=== PATIENT | female | born 1995 | race Caucasian/White ===

== ENCOUNTER 2020-10-05 10:00 | Emergency (ER) | payer OTHER, SELFPAY ==
[2020-10-05 10:12] VITALS: BP 134/89; PULSE 99; RESP 18; TEMP 36.3; O2SAT 99
--- NOTE | 2020-10-05 10:14 | ED.URI ---
HPI - URI/Sore Throat General Chief Complaint: Upper Respiratory Infection Stated Complaint: Sinus Source: patient and RN notes reviewed Limitations: no limitations History of Present Illness HPI Narrative: The vaccinated patient, a non-smoker/occasional drinker , presents with cough and congestion. Patient states she has 1/2-week history of cough, congestion, preceded by improving sore throat. No fever, earache, sneezing/wheezing; no loss of taste/smell, CP, sputum changes, S OB, vomiting/diarrhea. Related Data Allergies Allergy/AdvReac Type Severity Reaction Status Date / Time No Known Allergies Allergy Verified 10/05/20 10:06 Review of Systems Review of Systems: Narrative: General/Constitutional: No weight loss,fever Eyes: N0: Redness,discharge Ears/Nose/Throat: No: Epistaxis,ear discharge Respiratory: Denies: Hemoptysis Gastrointestinal: No Vomiting, Bleeding-rectal Skin: No Lumps, eruption Neurologic: No Focal Weakness,Sz Hematologic: Denies: Petechiae/Purpura Psychiatric: No: Suicida ideationl All Other Systems: Reviewed and Negative PMFSH Past Medical History Medical History (Updated 10/08/20 @ 16:00 by Avery Live MD) Major depression in remission Mass of left wrist Family History Family History (Updated 05/21/16 @ 13:59 by DOCTOR UNKNOWN) Father Hypertension Other Cerebrovascular accident Social History Social History Smoking status: Never smoker Second hand tobacco smoke exposure: No Alcohol intake: never Gender identity (if verbalized by the patient): Female Comments At time of signature, agree with nursing past medical, surgical, social and family history. There is no relevant family history pertinent to the presenting complaint Exam Narrative: Exam Narrative: General Appearance: Well appearing, obese/ Well nourished EYE: PERRLA, Conjunctiva clear Ears: Auditory canal normal, TM normal Nose: Rhinorrhea, Mucousal erythema Mouth/Throat: MM moist, Uvula midline, Pharyngeal erythema Neck: Supple, No adenopathy Respiratory: No respiratory distress; decreased BS , equal; Clear to auscultation Cardiovascular: RRR, No JVD Musculoskeletal: Non tender, Normal strength Skin: Warm, Dry Neurological: A&O x3, CN II-XII intact Psychiatric: Normal mood, Normal affect Course Vital Signs Vital signs: Vital Signs Temperature 97.3 F L 10/05/20 10:12 Pulse Rate 99 10/05/20 10:12 Respiratory Rate 18 10/05/20 10:12 Blood Pressure 134/89 10/05/20 10:12 Pulse Oximetry 99 10/05/20 10:12 Temperature 97.3 F L 10/05/20 10:12 Pulse Rate 99 10/05/20 10:12 Respiratory Rate 18 10/05/20 10:12 Blood Pressure 134/89 10/05/20 10:12 Pulse Oximetry 99 10/05/20 10:12 Discharge Plan Discharge Clinical Impression: Upper respiratory infection Qualifiers: URI type: unspecified URI Qualified Code(s): J06.9 - Acute upper respiratory infection, unspecified Patient Disposition: Home, Self-Care Condition: Stable Instructions: Sinusitis (ED) Prescriptions: New azithromycin 250 mg tablet See Rx Instructions .ROUTE .COMPLEX Qty: 6 RF: 0 azelastine 137 mcg (0.1 %) aerosol,spray 137 mcg NASAL Q12H Qty: 30 RF: 0 benzonatate [Tessalon Perles] 100 mg capsule 100 mg PO TID Qty: 20 RF: 1 No Action levothyroxine [Synthroid] 50 mcg tablet 50 mcg PO DAILY 90 Days Qty: 90 RF: 1 bupropion HCl 150 mg tablet extended release 24 hr See Rx Instructions .ROUTE .COMPLEX Qty: 90 RF: 0 Follow-up/Referrals: Jada,Cammie Dietrich APRN [Primary Care Provider] -
== END 2020-10-05 10:32 | disposition home or self-care (01) ==
PROVIDERS: Emergency Provider Emergency Medicine; PCP Nurse Practitioner Family
DX: J06.9 Acute upper respiratory infection, unspecified (principal)
CPT/HCPCS: 99213; G0463

== ENCOUNTER 2021-02-12 11:41 | Emergency (ER) | payer OTHER, SELFPAY ==
[2021-02-12 12:15] VITALS: BP 132/79; PULSE 79; RESP 18; TEMP 35.7; O2SAT 99
--- NOTE | 2021-02-12 12:51 | ED.EXTPRO ---
HPI - Extremity Problem General Chief complaint: Extremity Problem,Nontraumatic Stated complaint: R toe infection Time Seen by Provider: 02/12/21 12:46 Source: patient, RN notes reviewed and old records reviewed Mode of arrival: ambulatory Limitations: no limitations History of Present Illness HPI Narrative: 25 year old female presents to express care with complaints of pain and swelling to the inner aspect along toe nail of right great toe for the past month which has increased in the past 2 weeks. Patient voices that just about every time she gets a pedicure she gets swelling and pain along the inner aspect of her right great toenail. Patient states that she has not been soaking her foot but has taken some Tylenol for the discomfort. Patient denies any known fevers chills or sweats. MD Complaint: other (right great toe pain) Onset (ago): week(s) (increased past 2 weeks) Pain Consistency: constant Location: right and toe (great toe) Severity scale (1-10): 8 Quality: aching and other (throbbing) Related Data Allergies Allergy/AdvReac Type Severity Reaction Status Date / Time No Known Allergies Allergy Verified 02/12/21 12:32 Review of Systems Review of Systems: CONSTITUTIONAL: Denies fever, chills, or sweats. EYES: Denies visual changes, redness, or discharge. ENT: Denies rhinorrhea, congestion, sore throat, or otalgia. CARDIOVASCULAR: Denies chest pain, palpitations, or edema. RESPIRATORY: Denies cough or dyspnea. GASTROINTESTINAL: Denies abdominal pain, nausea, vomiting, or diarrhea. GENITOURINARY: Denies dysuria or hematuria. SKIN: Denies rash or itching.Positive for right great toe inner aspect of nail with pain and swelling MUSCULOSKELETAL: Denies back pain, joint pain, or myalgia. NEUROLOGIC: Denies headache, numbness, or weakness. PSYCHIATRIC: Positive history of anxiety or depression. All systems reviewed & are unremarkable except as noted in HPI and below PMFSH Past Medical History Medical History (Updated 02/12/21 @ 13:39 by Quita Vu NP) History of sinus problem Hypothyroidism Major depression in remission Mass of left wrist Surgical History Surgical History (Updated 02/12/21 @ 12:55 by Quita Vu NP) History of open heart surgery X3 as 1 to replace valve Family History Family History Father Hypertension Other Cerebrovascular accident Social History Social History Smoking status: Never smoker Second hand tobacco smoke exposure: No Alcohol intake: never Gender identity (if verbalized by the patient): Female Comments At time of signature, agree with nursing past medical, surgical, social and family history. There is no relevant family history pertinent to the presenting complaint Exam Narrative: GENERAL: Well-appearing, well-nourished, and in no acute distress. HEAD: Normocephalic, atraumatic. EYES: PERRLA and EOMI. ENT: Nares clear, no rhinorrhea or epistaxis. Mucous membranes moist.TM's normal with good light reflex, throat pink with no lesions or exudates, tonsils not enlarged. NECK: Supple. no lymphadenopathy CHEST: Clear to auscultation. No respiratory distress.SAO2 99% on room air HEART: Regular rate and rhythm. No murmur heard. Normal peripheral pulses. ABDOMEN: Soft, nontender, nondistended, normal active bowel sounds. EXTREMITIES: Normal range of motion. No edema. SKIN: Warm, dry, no rash. swelling with redness and pain to the inner aspect of right great toe nail bed.Patient reports that she has not had any drainage from around her nail, states throbbing pain.patient has strong pulses to right foot with no tingling or numbness to her right great toe voiced, mobility is intact. NEURO: No focal deficits. Alert and oriented x3. Course Vital Signs Vital signs: Vital Signs Temperature 35.7 C L 02/12/21 12:15 Pulse Rate 79 02/12/21 12:15 Res
== END 2021-02-12 13:18 | disposition home or self-care (01) ==
PROVIDERS: Emergency Provider Registered Nurse; PCP Nurse Practitioner Family
DX: L03.031 Cellulitis of right toe (principal); E03.9 Hypothyroidism, unspecified
CPT/HCPCS: 10160; 99213; G0463

== ENCOUNTER 2021-03-07 10:03 | Emergency (ER) | payer OTHER, SELFPAY ==
--- NOTE | 2021-03-07 10:39 | ED.URI ---
HPI - URI/Sore Throat General Chief Complaint: Upper Respiratory Infection Stated Complaint: cough,runny and stuffy nose Time Seen by Provider: 03/07/21 10:40 Source: patient and RN notes reviewed History of Present Illness HPI Narrative: Patient is a 25-year-old female who presents the urgent care with complaints of cough, runny nose and stuffy nose off and on for the last week. Patient states that she has been using DayQuil without much relief. Patient denies of any fever, chills, nausea, vomiting. States that she was recently on Keflex for an infected toe. Patient has had her Covid vaccine and denies of any Covid exposures. No other acute complaints. No acute distress noted. Patient aware of the plan of care. Some parts of this dictation were generated by voice recognition software and may contain typographical and/or grammatical inaccuracies. Related Data Home Medications Medication Instructions Recorded Confirmed bupropion HCl 150 mg PO DAILY 03/07/21 03/07/21 levothyroxine 50 mcg PO DAILY 03/07/21 03/07/21 spironolactone 100 mg PO DAILY 03/07/21 03/07/21 Allergies Allergy/AdvReac Type Severity Reaction Status Date / Time No Known Allergies Allergy Verified 03/07/21 10:48 Review of Systems Review of Systems: CONSTITUTIONAL: Denies fever, chills, or sweats. EYES: Denies visual changes, redness, or discharge. ENT: Reports of nasal congestion, rhinorrhea and postnasal drainage CARDIOVASCULAR: Denies chest pain, palpitations, or edema. RESPIRATORY: Reports a mild cough without dyspnea GASTROINTESTINAL: Denies abdominal pain, nausea, vomiting, or diarrhea. GENITOURINARY: Denies dysuria or hematuria. SKIN: Denies rash or itching. MUSCULOSKELETAL: Denies back pain, joint pain, or myalgia. NEUROLOGIC: Denies headache, numbness, or weakness. All other systems reviewed are negative, except as documented in HPI. PMFSH Comments At the time of my signature, I reviewed and agree with the nursing past medical, surgical, social, and family history. There is no relevant family history pertinent to the patient complaint. Exam Narrative: GENERAL: This is a well-nourished, well-developed patient, in no apparent distress. HEAD: normocephalic, atraumatic. EYES: PERRL. Sclera clear/white. Vision is grossly intact. EARS: External ears normal, auditory canals clear and without drainage, TMs normal without perforation. Hearing grossly intact. NOSE: External nose normal with no obvious nasal discharge, nares without redness, clear rhinorrhea. THROAT: Mucous membranes moist, posterior pharynx clear. Mild postnasal drainage NECK: Neck supple, non-tender without lymphadenopathy, masses or thyromegaly. CARDIOVASCULAR: Regular rate notable murmur RESPIRATORY: Clear to auscultation. Breath sounds equal bilaterally. No wheezes, rales, or rhonchi. SKIN: warm, intact with no suspicious lesions or rash, good texture and turgor. NEURO: awake, alert, and oriented to person, place and time. There were no obvious focal neurologic abnormalities. EXTREMITIES: No clubbing, cyanosis, or edema. Course Vital Signs Vital signs: Vital Signs Temperature 97.1 F L 03/07/21 10:42 Pulse Rate 96 03/07/21 10:42 Respiratory Rate 18 03/07/21 10:42 Blood Pressure 145/94 H 03/07/21 10:42 Pulse Oximetry 99 03/07/21 10:42 Temperature 97.1 F L 03/07/21 10:42 Pulse Rate 96 03/07/21 10:42 Respiratory Rate 18 03/07/21 10:42 Blood Pressure 145/94 H 03/07/21 10:42 Pulse Oximetry 99 03/07/21 10:42 Reviewed-patient is informed that they may have pre-hypertension or hypertension based on a blood pressure reading in the department. I recommend the patient call the primary care provider listed on their discharge instructions or a physician of their choice this week to arrange follow-up for further evaluation of possible pre-hypertension or hypertension. MDM - URI/Sore Throat MDM Narrative Medical decision making narrative: Advised the pa
[2021-03-07 10:42] VITALS: BP 145/94; PULSE 96; RESP 18; TEMP 36.2; O2SAT 99
== END 2021-03-07 11:00 | disposition home or self-care (01) ==
PROVIDERS: Emergency Provider Nurse Practitioner Family; PCP Nurse Practitioner Family
DX: J32.9 Chronic sinusitis, unspecified (principal)
CPT/HCPCS: 99203; G0463

== ENCOUNTER 2023-01-28 08:02 | Emergency (ER) | payer OTHER, SELFPAY ==
--- NOTE | 2023-01-28 08:19 | ED.ABDPAIN ---
HPI - Abdominal Pain General Chief Complaint: Abdominal Pain Stated Complaint: constipation Time Seen by Provider: 01/28/23 08:18 Source: patient Mode of arrival: ambulatory Limitations: no limitations History of Present Illness HPI narrative: Ginna is a 27-year-old female patient presenting to the clinic today with complaints of constipation x5 days. She reports that she is having some upper abdominal discomfort and bloating. Last bowel movement was 5 days ago and was very hard. Is reporting some pain to her rectal area-states it hurts to try to have a bowel movement due to pain. No fever or chills. Denies any nausea or vomiting. Is passing gas. Related Data Home Medications Medication Instructions Recorded Confirmed bupropion HCl 150 mg 24 hr tablet, 150 mg PO DAILY 03/07/21 01/28/23 extended release levothyroxine 50 mcg tablet 50 mcg PO DAILY 03/07/21 01/28/23 spironolactone 100 mg tablet 100 mg PO DAILY 03/07/21 01/28/23 Allergies Allergy/AdvReac Type Severity Reaction Status Date / Time No Known Allergies Allergy Verified 01/28/23 08:27 Review of Systems Review of Systems: Pertinent positives per HPI. Patient denies any fever, chills, rash, headache, visual changes, dizziness, cough, runny nose, sore throat, shortness of breath, chest pain, palpitations, nausea, vomiting, diarrhea, or any urinary issues. [facility] Past Medical History Medical History History of sinus problem Hypothyroidism Major depression in remission Mass of left wrist Surgical History Surgical History History of open heart surgery X3 as 1 to replace valve Family History Family History Father Hypertension Other Cerebrovascular accident Social History Social History Smoking status: Never smoker Second hand tobacco smoke exposure: No Alcohol intake: never Gender identity (if verbalized by the patient): Female Comments At the time of my signature, I reviewed and agree with the nursing past medical, surgical, social, and family history. There is no relevant family history pertinent to the patient complaint. Exam Narrative: General: Well-developed, well nourished, in no apparent distress. Head: Normocephalic, atraumatic. Cardio: Regular rate and rhythm, s1 and s2 normal, no murmur appreciated. Resp: Clear to auscultation bilaterally, no rhonchi, rales, wheezing or rubs. Abdomen: Soft, distended, pliable, bowel sounds hypoactive but present in all quadrants, tender to palpation over the upper abdomen, no organomegly, no CVAT tenderness. Rectal: Georgina RN at bedside-large swollen nonthrombosed hemorrhoid noted at 12:00 of the rectum, tender to palpation, no bleeding, no obvious anal fissure. Course Course Emergency Course: Portions of this record may have been created with voice recognition software. Level of Care: Express Care Visit Vital Signs Vital signs: Vital Signs Temperature 36.1 C L 01/28/23 08:30 Pulse Rate 90 01/28/23 08:30 Respiratory Rate 20 01/28/23 08:30 Blood Pressure 149/93 H 01/28/23 08:30 Pulse Oximetry 100 01/28/23 08:30 Oxygen Delivery Room Air 01/28/23 08:30 Temperature 36.1 C L 01/28/23 08:30 Pulse Rate 90 01/28/23 08:30 Respiratory Rate 20 01/28/23 08:30 Blood Pressure 149/93 H 01/28/23 08:30 Pulse Oximetry 100 01/28/23 08:30 Oxygen Delivery Room Air 01/28/23 08:30 Vital signs reviewed MDM - Abdominal Pain MDM Narrative Medical decision making narrative: At the time of visit patient is resting comfortably on the exam table. I suspect patient has constipation, rectal pain with large tender hemorrhoid. No obvious bleeding noted. Prescriptions for Mag citrate, Dulcolax, Anusol, and MiraLax w
[2023-01-28 08:30] VITALS: BP 149/93; PULSE 90; RESP 20; TEMP 36.1; O2SAT 100
== END 2023-01-28 08:51 | disposition home or self-care (01) ==
PROVIDERS: Emergency Provider Nurse Practitioner Family; PCP Nurse Practitioner Family
DX: K59.00 Constipation, unspecified (principal); K64.9 Unspecified hemorrhoids; E03.9 Hypothyroidism, unspecified
CPT/HCPCS: 99213; G0463

== ENCOUNTER 2023-04-29 08:44 | Outpatient (CLI) | payer OTHER, SELFPAY ==
[2023-04-29 09:11] LABS: Basophils Percent Auto 0.4 % (0.2-1.2); Eosinophils Absolute Auto 0.1 K/mm3 (0-0.3); Eosinophils Percent Auto 1.2 % (0-4.4); Hematocrit 43.7 % (37.0-47.0); Hemoglobin 14.9 g/dL (12.0-15.0); Immature Granulocyte Absolute 0.02 K/mm3 (0.00-0.031); Immature Granulocyte Percent A 0.2 % (0-0.5); Lymphocytes Absolute Auto 3.26 K/mm3 (0.9-3.2); Mean Corpuscular HGB Conc 34.1 g/dl (32-36); Mean Corpuscular Hemoglobin 30.2 pg (26-34); Mean Corpuscular Volume 88.6 fl (80-100); Mean Platelet Volume 9.4 fl (7.4-10.4); Monocytes Absolute Auto 0.5 K/mm3 (0.1-0.6); Monocytes Percent Auto 5.1 % (2.6-8.5); Neutrophils Absolute Auto 6.5 K/mm3 (1.3-6.7); Neutrophils Percent Auto 62.1 % (45.5-73.1); Platelet Count Result 326 k/mm3 (150-375); Red Blood Count 4.93 M/mm3 (4.2-5.4); Red Cell Distribution Width 12.1 % (11.5-14.5); White Blood Count 10.5 K/mm3 (4.5-10.0)
[2023-04-29 09:24] LABS: Alanine Aminotransferase 22 U/L (6-35); Albumin Level 4.5 g/dL (3.5-5.1); Alkaline Phosphatase 71 U/L (38-126); Anion Gap 9 mmol/L (8-16); Aspartate Amino Transferase 33 U/L (14-36); Bilirubin,Total 1.2 mg/dL (0.2-1.3); Blood Urea Nitrogen 17 mg/dL (7-17); Calcium 9.3 mg/dL (8.4-10.2); Carbon Dioxide 26 mmol/L (22-30); Chloride 104 mmol/L (98-107); Cholesterol 140 mg/dL (0-200); Estimated Glomerular Filt Rate > 60; Glucose 92 mg/dL (65-110); HDL Direct 51 mg/dL; Potassium 3.9 mmol/L (3.4-5.0); Sodium 139 mmol/L (137-145); Triglycerides 125 mg/dL (<150)
[2023-04-29 09:35] LABS: LDL Cholesterol Direct 67 mg/dL
[2023-04-29 09:43] LABS: Hemoglobin A1C 5.7 % (<5.7)
[2023-04-29 10:25] LABS: Free T4 Free Thyroxine 1.29 ng/mL (0.78-2.19)
[2023-05-02 11:52] LABS: DHEA-Sulfate 146 mcg/dL (18-391)
[2023-05-03 07:40] LABS: FSH 8.1 mIU/mL (***); LH 3.9 mIU/mL (***); Triiodothyronine T3 Free 3.4 pg/mL (2.3-4.2)
[2023-05-03 12:19] LABS: Testosterone Total 26 ng/dL (2-45)
[2023-05-03 12:38] LABS: Testosterone Free 4.8 pg/mL (0.2-5.0)
== END 2023-04-29 08:45 | disposition home or self-care (01) ==
LOC: ANHLAB 08:48
PROVIDERS: Visit Provider Obstetrics & Gynecology
DX: N92.6 Irregular menstruation, unspecified (principal)
CPT/HCPCS: 36415; 80053; 80061; 82627; 83001; 83002; 83036; 84402; 84403; 84439; 84443; 84481; 85025

== ENCOUNTER 2023-06-06 10:50 | Emergency (ER) | payer OTHER, SELFPAY ==
[2023-06-06 11:02] VITALS: BP 141/73; PULSE 86; RESP 18; TEMP 36.5; O2SAT 98
[2023-06-06 11:05] VITALS: BP 141/73; PULSE 86; RESP 18; TEMP 36.5; O2SAT 98
--- NOTE | 2023-06-06 11:11 | ED.LOWEXIN ---
HPI - Extremity Injury (Lower) General Chief Complaint: Extremity Injury, Lower Stated Complaint: right toe infection Time Seen by Provider: 06/06/23 11:11 Source: patient Mode of arrival: ambulatory Limitations: no limitations History of Present Illness HPI Narrative: [age] female presents with complaint of redness, swelling and drainage to right great toe. Patient reports that she had pedicure prior to going on vacation. Patient states that she has had a procedure with a piece dyer that cut down part of her toenail and when she gets a pedicure they cut too far. Afebrile. Has been applying Neosporin with no improvement. All systems reviewed and negative except as noted above. Related Data Home Medications Medication Instructions Recorded Confirmed bupropion HCl 150 mg 24 hr tablet, 150 mg PO DAILY 03/07/21 02/19/23 extended release levothyroxine 50 mcg tablet 50 mcg PO DAILY 03/07/21 02/19/23 spironolactone 100 mg tablet 100 mg PO DAILY 03/07/21 02/19/23 sertraline 100 mg tablet 100 mg PO DAILY 02/19/23 02/19/23 acetaminophen 500 mg tablet 500 mg PO Q6H 06/06/23 06/06/23 (Acetaminophen Extra Strength) hydroxyzine HCl 25 mg tablet mg 06/06/23 Allergies Allergy/AdvReac Type Severity Reaction Status Date / Time No Known Allergies Allergy Verified 06/06/23 11:04 Review of Systems Review of Systems: CONSTITUTIONAL: Denies fever, chills, or sweats. EYES: Denies visual changes, redness, or discharge. ENT: Denies rhinorrhea, congestion, sore throat, or otalgia. CARDIOVASCULAR: Denies chest pain, palpitations, or edema. RESPIRATORY: Denies cough or dyspnea. GASTROINTESTINAL: Denies abdominal pain, nausea, vomiting, or diarrhea. GENITOURINARY: Denies dysuria or hematuria. SKIN: Denies rash or itching. Reports redness, drainage and pain to right great toenail. MUSCULOSKELETAL: Denies back pain, joint pain, or myalgia. NEUROLOGIC: Denies headache, numbness, or weakness. PSYCHIATRIC: Denies anxiety or depression. All other systems reviewed are negative, except as documented in HPI. [facility] Past Medical History Medical History History of sinus problem Hypothyroidism Major depression in remission Mass of left wrist Surgical History Surgical History History of open heart surgery X3 as infant 1 to replace valve Family History Family History (Updated 02/19/23 @ 08:57 by GIOVANNI Cabrera) Father Hypertension Grandparent Carcinoma of colon paternal Stomach cancer paternal Other Cerebrovascular accident Social History Social History (Updated 02/19/23 @ 08:58 by GIOVANNI Cabrera) Smoking status: Never smoker Second hand tobacco smoke exposure: No Alcohol intake: current Drinks per week: 1 Substance use: never Substance use type: does not use Lack of Transportation: No Lack of Food: Never True Current Housing: I Have Housing Concerned About Future Housing: No Difficulty Paying Gas/Electric Bills: No Difficulty Paying for Meds: No Currently Unemployed: No Education: Bachelor's Degree Difficulty w/ Childcare or Family Care: No Living arrangements: other Additional living arrangements comments: single Occupation/Education: occupation Additional occupation/education comments: [employer] Gender identity (if verbalized by the patient): Female Sexual Orientation (if Verbalized by the Patient): Straight or Heterosexual Comments At time of signature, agree with nursing past medical, surgical, social and family history. There is no relevant family history pertinent to the presenting complaint. Exam Narrative: GENERAL: This is a well-nourished, well-developed patient, in no apparent distress. HEAD: normocephalic, atraumatic. EYES: PERRL. Sclera clear/white. Vision is grossly intact. EARS: External ears no
== END 2023-06-06 11:22 | disposition home or self-care (01) ==
PROVIDERS: Emergency Provider Nurse Practitioner Family
DX: L08.9 Local infection of the skin and subcutaneous tissue, unspecified (principal); M79.674 Pain in right toe(s); E03.9 Hypothyroidism, unspecified
CPT/HCPCS: 99213; G0463

== ENCOUNTER 2025-01-13 00:39 | Day surgery (SDC) | payer OTHER, SELFPAY ==
--- NOTE | 2025-01-05 10:42 | SUR.PREOP ---
[facility] has started construction of its new state of the art ER which will open Spring 2026. With this, we anticipate parking may be a challenge for some our surgical patients and families. Parking spaces are limited but are available for all Surgical, obstetrics, and ER patients sharing this lot. If you arrive and find you are having a hard time finding a parking space, please note that we understand the challenges, please drive around the hospital and park near Hospital Entrance 1. When you enter this entrance, you can ask a volunteer to direct or take you back to the surgical waiting area to check in. We appreciate everyone?s understanding of these expected challenges while we build for your future. Report to the Outpatient Waiting Room, entrance under the green pavilion located off [address], at time ____629___ on date ___01/13/25____. Planned Procedure Time: ____829____.? Time changes happen often and if your time is changed the preop area will call you the afternoon before. - You and your visitor will be asked to self-screen and do not enter if you have any COVID symptoms. Please call surgeon if you need to reschedule. - A mask is optional within the hospital at this time. Patients may have clear liquids (water, carbonated beverages, clear teas, apple juice) until 3 hours prior to surgery with a maximum of 20 ounces. - NO CLEAR LIQUIDS AFTER 0530 - No food from midnight until time of surgery and no smoking, or chewing tobacco (or any form of nicotine). No chewing gum, candy or mints. - Infants may have breast milk until 4 hours before surgery, formula 6 hours prior to surgery. - Children will be allowed to drink immediately following surgery.? If applicable, please bring a bottle or sippy cup to assist with drinking. Juice, water, soda, and popsicles are readily available.? For infants on formula, please bring formula the day of surgery.? Pacifiers are allowed. Take only the following medications with a SIP of water on the morning of surgery: BUPROPION, VESTURA, HYDROXYZINE, SERTRALINE, ACETAMINOPHEN DO NOT STOP ANY OF YOUR OTHER PRESCRIPTION MEDICATIONS PRIOR TO SURGERY EXCEPT THE FOLLOWING Hold all vitamins and supplements for 3 days per anesthesiologist. Medications to discontinue per physician CHECK WITH DR NOLEN IN REGARDS TO CONTINUING OR HOLDING ALEVE BEFORE SURGERY Date to take last dose Please no make-up, nail puerto rican, hairspray, perfume, deodorant, or body powder the day of surgery.? No jewelry (including any body piercings) or valuables the day of surgery, leave them at home.? Please take a shower or bath the night before, or the morning of, surgery with an antibacterial soap.? Wear comfortable, loose fitting clothing.? Children are encouraged to wear pajamas. - Jewelry must be removed prior to entering the operating room.? Rings and piercings that are not removed may be cut off. - The hospital will not accept responsibility for valuables.? - Please leave all valuables, including medications, at home the day of surgery. If you are going home after surgery, a licensed oil truck driver must drive you home.? - NO public transportation without another adult if you receive anesthesia. - We recommend that an adult stay with you for 24 hours following discharge. - We also recommend that you do not drive, make important decision, drink alcoholic beverages, or take any drugs that were not prescribed by your health care provider for at least 24 hours after your discharge time. For Pediatric surgeries, we recommend two adults accompany the child home. Follow any additional instructions given to you from your surgeon. Telephone instructions given to CAR ONOFRE and asked if any additional questions and then verbalized understanding. Patient advised to call surgeon office or pre surgery nurse liaison [phone] if any additional questions.
[2025-01-05 10:57] VITALS: BMI 43.4
--- NOTE | 2025-01-13 07:14 | P.PNAN_ITS ---
Anes - Initial Pre Proc Eval Procedure: Operation Date: 01/13/25 08:30 Proposed Procedures p Partial Hymenectomy - Justin Romero MD Date/Time: 01/13/25 07:14 Surgeon: Justin Romero MD Pre Op Diagnosis: imperforate hymen Patient Data Age: 29 Gender: F Height: 1.74 m Weight: 131.7 kg Allergies Allergy/AdvReac Type Severity Reaction Status Date / Time No Known Allergies Allergy Verified 01/13/25 08:02 Home Medications ?Medication ?Instructions ?Recorded ?Confirmed ?Type bupropion HCl 150 mg 24 hr tablet, 300 mg PO DAILY 04/2701/05/25 History extended release spironolactone 100 mg tablet 100 mg PO DAILY 03/07/21 01/05/25 History sertraline 100 mg tablet 100 mg PO DAILY 02/19/2305/01 History acetaminophen 500 mg tablet 500 mg PO Q6H 06/06/2305/01 History (Acetaminophen Extra Strength) drospirenone 3 mg-ethinyl 1 tablet PO DAILY #84 tabs 0 10/13/24 01/05/25 Rx estradiol 0.02 mg tablet (Vestura (28)) cholecalciferol (vitamin D3) 25 100 mcg PO DAILY 11/2901/05/25 History mcg (1,000 unit) capsule hydroxyzine HCl 25 mg tablet 25 mg PO DAILY PRN anxiet y 11/29/24 01/05/25 History vitamin K2 1 tablet PO DAILY 11/29/24 1 History naproxen sodium 220 mg tablet 440 mg PO ONCE 01/05/25 01/05/25 History (Aleve) Patient hx anesthesia problems: none Family hx anesthesia problems: none Results Review: All pre-operative results and documents have been reviewed as part of the pre- operative evaluation. FORMERLY [facility], [facility] Past Medical History Medical History Congenital pulmonary stenosis SHANTA (obstructive sleep apnea) CPAP Encounter for screening examination for sexually transmitted disease History of sinus problem Hypothyroidism Major depression in remission Mass of left wrist Surgical History Surgical History History of open heart surgery X3 as infant 1 to replace valve Family History Family History Father Hypertension Grandparent Carcinoma of colon paternal Stomach cancer paternal Other Cerebrovascular accident Social History Social History Social History: Caffeine-coffee Smoking status: Never smoker Second hand tobacco smoke exposure: No Alcohol intake: current Drinks per week: 2 Substance use: never Substance use type: does not use Do You Feel Safe in your Home?: Yes Lack of Transportation: No Lack of Food: Never True Current Housing: I Have Housing Concerned About Future Housing: No Difficulty Paying Gas/Electric Bills: No Difficulty Paying for Meds: No Currently Unemployed: No Education: Bachelor's Degree Difficulty w/ Childcare or Family Care: No Living arrangements: alone Occupation/Education: occupation Additional occupation/education comments: [employer] Gender identity (if verbalized by the patient): Female Sexual Orientation (if Verbalized by the Patient): Straight or Heterosexual Spiritual care concerns: No Anes - Eval Final PreProcedure Day of Procedure 01/13/25 07:14 Patient weight: morbidly obese Heart: regular rate and rhythm Lungs: clear to auscultation Airway: Mallampati scale class II Neurological: alert and oriented Last oral intake: >/= 8 hours ASA classification: III Emergent: no Anesthetic plan: proceed Anesthesia type and monitoring: general GIVS and standard monitoring Results Review: All pre-operative results and documents have been reviewed as part of the pre- operative evaluation. Informed Consent: The patient's anesthetic plan and its attendant risks and benefits were discussed with the patient/family/POA. Questions were solicited and answers provided to the satisfaction of the patient/family/POA.
[2025-01-13] MEDS: LACTATED RINGERS 1,000 ML 30 ML IV CONT (07:15)
--- NOTE | 2025-01-13 07:44 | PM.IMHP ---
H&P: HPI History of Present Illness Date/Time: 01/13/25 07:44 29-year-old female presents for treatment hymenal remnant which has made intercourse painful/not possible. No other issues or concerns at this time Chief Complaint: Hymenal remnant Review of Systems Review of Systems: All systems reviewed & are unremarkable except as noted in HPI and below PMFSH Past Medical History Medical History Congenital pulmonary stenosis SHANTA (obstructive sleep apnea) CPAP Encounter for screening examination for sexually transmitted disease History of sinus problem Hypothyroidism Major depression in remission Mass of left wrist Surgical History Surgical History History of open heart surgery X3 as 1 to replace valve Family History Family History Father Hypertension Grandparent Carcinoma of colon paternal Stomach cancer paternal Other Cerebrovascular accident Social History Social History Social History: Caffeine-coffee Smoking status: Never smoker Second hand tobacco smoke exposure: No Alcohol intake: current Drinks per week: 2 Substance use: never Substance use type: does not use Do You Feel Safe in your Home?: Yes Lack of Transportation: No Lack of Food: Never True Current Housing: I Have Housing Concerned About Future Housing: No Difficulty Paying Gas/Electric Bills: No Difficulty Paying for Meds: No Currently Unemployed: No Education: Bachelor's Degree Difficulty w/ Childcare or Family Care: No Living arrangements: alone Occupation/Education: occupation 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 Gender identity (if verbalized by the patient): Female Sexual Orientation (if Verbalized by the Patient): Straight or Heterosexual Spiritual care concerns: No Meds Home Medications and Allergies Home Medications ?Medication ?Instructions ?Recorded ?Confirmed ?Type bupropion HCl 150 mg 24 hr tablet, 300 mg PO DAILY 03/07/21 01/05/25 History extended release spironolactone 100 mg tablet 100 mg PO DAILY 03/07/21 01/05/25 History sertraline 100 mg tablet 100 mg PO DAILY 02/19/23 01/05/25 History acetaminophen 500 mg tablet 500 mg PO Q6H 06/06/23 01/05/25 History (Acetaminophen Extra Strength) drospirenone 3 mg-ethinyl 1 tablet PO DAILY #84 tabs 10/13/24 01/05/25 Rx estradiol 0.02 mg tablet (Vestura (28)) cholecalciferol (vitamin D3) 25 100 mcg PO DAILY 11/29/24 01/05/25 History mcg (1,000 unit) capsule hydroxyzine HCl 25 mg tablet 25 mg PO DAILY PRN anxiety 11/29/24 01/05/25 History vitamin K2 1 tablet PO DAILY 11/29/24 01/05/25 History naproxen sodium 220 mg tablet 440 mg PO ONCE 01/05/25 01/05/25 History (Aleve) Allergies Allergy/AdvReac Type Severity Reaction Status Date / Time No Known Allergies Allergy Verified 01/05/25 10:58 Exam Resp: Effort & Inspection: normal respiratory effort Auscultation: clear to auscultation bilaterally Cardio: Rate: regular rate Rhythm: regular rhythm GI: Inspection: normal to inspection Auscultation: normal bowel sounds : External Female Exam: normal external appearance Speculum Exam - Vagina: other (Hymen present) Speculum Exam - Cervix: normal appearance of the cervix Bimanual exam- vagina & uterus: normal bimanual exam Bimanual Exam- Adnexa, other: normal adnexae Assessment and Plan Assessment and plan (1) 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
--- NOTE | 2025-01-13 07:47 | WPDHPUPDATE1 ---
History and Physical Update Update Date/Time: 01/13/25 07:47 History and Physical has been reviewed, including an updated exam of the patient. There are NO changes in the patient's condition. Risks, benefits, and alternatives have been discussed and questions answered. Patient agrees to proceed with procedure.
[2025-01-13 08:03] VITALS: BP 147/97; PULSE 79; TEMP 36.1; O2SAT 99; BMI 42.7
[2025-01-13] MEDS: ceFAZolin 3 GM/D5W 100 ML 100 ML IVPB (09:15)
--- NOTE | 2025-01-13 09:16 | S_PTH ---
PATIENT: Ginna Nicholson LOC: [facility] U#:[id number] AGE/SX: 29/F ROOM: RE01/13/[address]: Justin Romero MD : 1995 BED: DIS: 01/13/2025 SPEC #: [id number] RECD: 01/13/25 11:47 STATUS: [place]TON REQ #: [id number] LIANET: 01/13/25 09:[address]: Justin Romero DEPT: [facility] Surgical RECD BY: Amy Christie ENTERED: 01/13/25 11:47 SP TYPE: Surgical OTHR DR: Aaron Galvin, PA Tissues: A - Vaginal Biopsy Procedures: Hematoxylin and Eosin Stain Gross and Microscopic Level 4
[2025-01-13 09:30] VITALS: BP 100/62; PULSE 72; RESP 16; O2SAT 100
--- NOTE | 2025-01-13 09:32 | W.PM.PROC2 ---
Procedure Note - Detailed Date of Procedure 01/13/25 Pre-op Diagnosis imperforate hymen Post-op Diagnosis Same Procedure Performed Hymenectomy Surgeon Justin Romero MD Anesthesia MAC Findings Hymenal ring noted Description of Procedure Patient prepped draped for this procedure. Amenorrhea ring remnants were noted multiple sections removed without difficulty. These defects oozing slightly and 2-0 chromic interrupted sutures were used to approximate this tissue and rendered hemostatic. At the end of the procedure 3 fingers could be placed without difficulty through this area, where as to could not be placed without putting significant stretch on tissue. There was no bleeding, and procedure was considered terminated. Estimated Blood Loss 100 Drains No Packing No Pathology Yes Complications No immediate complications Condition Stable Disposition PACU [facility] Billing Surgery - Charge Forward: Surgery Billing
[2025-01-13 10:00] VITALS: BP 131/85; PULSE 70; RESP 16
[2025-01-13] MEDS: oxyCODONE HCL (*CRX) 5 MG TAB IR PO (10:03)
[2025-01-13 10:30] VITALS: BP 132/91; PULSE 67; RESP 18
[2025-01-13 10:41] VITALS: BP 127/87; PULSE 66; RESP 18
== END 2025-01-13 10:45 | disposition home or self-care (01) ==
PROVIDERS: PCP Physician Assistant; Visit Provider Obstetrics & Gynecology
PROC: (CPT 56700; principal; 2025-01-13 08:30)
DX: Q52.3 Imperforate hymen (principal); G89.18 Other acute postprocedural pain; E03.9 Hypothyroidism, unspecified; G47.33 Obstructive sleep apnea (adult) (pediatric); F32.5 Major depressive disorder, single episode, in full remission; Q22.1 Congenital pulmonary valve stenosis; E66.01 Morbid (severe) obesity due to excess calories; Z68.41 Body mass index [BMI] 40.0-44.9, adult; Z79.1 Long term (current) use of non-steroidal anti-inflammatories (NSAID); Z99.89 Dependence on other enabling machines and devices; Z98.890 Other specified postprocedural states; Z80.0 Family history of malignant neoplasm of digestive organs
CPT/HCPCS: 56700; 88305; A9270; J0690; J2250; J2704; J3010; J7120

== ENCOUNTER 2025-02-02 09:49 | Outpatient (CLI) | payer OTHER, SELFPAY ==
--- OUTSIDE RECORDS SUMMARY | 2025-02-02 10:50 | XMS_ITS | Clinical Summary ---
Author Organization [facility] Address [address] [place] [address] Care Team Providers Care Talent Acquisition Associate Name Role Phone No, Physician Primary Care Provider [phone] Allergies No known active allergies Medications benzoyl peroxide 2.5 % cleanser Apply topically 0 Active buPROPion XL (WELLBUTRIN XL) 150 mg 24 hr tablet Take 2 tablets (300 mg total) by mouth daily 3 Active buPROPion XL (WELLBUTRIN XL) 300 mg 24 hr tablet Take 1 tablet (300 mg total) by mouth daily 9 Active doxycycline hyclate (VIBRAMYCIN) 50 mg capsule Take 1 capsule (50 mg total) by mouth every 12 (twelve) hours Active ergocalciferol (VITAMIN D) 50,000 unit capsule Take 1 capsule (50,000 Units total) by mouth once a week 2 Active hydrOXYzine (ATARAX) 25 mg tablet TAKE 1/2 TO 1 TABLET BY MOUTH EVERY 8 HOURS NEEDED FOR ANXIETY 3 Active ketoconazole (NIZORAL) 2 % shampoo 1 Active levothyroxine (SYNTHROID) 50 mcg tablet Take 1 tablet (50 mcg total) by mouth every morning Active sertraline (ZOLOFT) 100 mg tablet Take 1 tablet (100 mg total) by mouth daily 2 Active spironolactone (ALDACTONE) 100 mg tablet Take 1 tablet (100 mg total) by mouth daily 1 Active naproxen (NAPROSYN) 500 mg tabletIndicatio ns:Left wrist pain Take 1 tablet (500 mg total) by mouth 2 (two) times a day with meals 7 tablet 3 Active Active Problems Problem Noted Date Diagnosed Date Current moderate episode of major depressive disorder without prior episode 03/31/2022 MIGUEL (generalized anxiety disorder) 03/31/2022 Hypothyroidism 11/01/2021 Low back pain without sciatica 04/25/2021 Pulmonary valve stenosis 11/17/2009 Social History Tobacco Use Types Packs/Day Years Used Date Smoking Tobacco: Never Assessed Comments Unknown Sex and Gender Information Value Date Recorded Sex Assigned at Not on file 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 Gender Identity Not on file Sexual Orientation Not on file Obstetrics History Last Filed Vital Signs Vital Sign Reading Time Taken Comments Blood Pressure 130/78 11/22/2022 10:29 AM CDT Pulse 94 11/22/2022 10:29 AM CDT Temperature 37.2 C (98.9 F) 11/22/2022 10:29 AM CDT Respiratory Rate 16 11/22/2022 10:29 AM CDT Oxygen Saturation 98% 11/22/2022 10:29 AM CDT Inhaled Oxygen Concentration - - Weight 135.2 kg (298 lb) 11/22/2022 10:29 AM CDT Height 174 cm (5' 8.5) 11/22/2022 10:29 AM CDT Body Mass Index 44.65 11/22/2022 10:29 AM CDT Plan of Treatment Health Maintenance Due Date Last Done Comments Cervical Cancer Screening 1995 Depression Screening 1995 Hepatitis C Screening 1995 Regular Well Visit/Exam 18-64 08/12/2013 Covid-19 Vaccine ( season) 2024 02/09/2021, 05/02/2020, 04/13/2020 Influenza Vaccine (#1) 2024 2, 12/27/2020, 12/27/2020, Additional history exists DTaP/Tdap/Td Vaccine (8 - Td or Tdap) 05/20/2027 05/20/2017, 01/12/2007, 08/21/2000, Additional history exists Hepatitis B Screening Completed 05/20/1996 , 1995, 1995 HPV Vaccines Completed 08/25/2008, 04/07, 02/18/2008 Varicella Vaccines Completed 11/17/2009, 0 08/21/2000, 11/18/1996, Additional history exists Pneumococcal vaccine <65 Aged Out No longer eligible based on patient's age to complete this topic Insurance O O Care Teams Talent Acquisition Associate Relationship Specialty Start Date End Date No, Physician PCP - General 11/21/21
--- OUTSIDE RECORDS SUMMARY | 2025-02-02 10:50 | XMS_ITS | Clinical Summary ---
Author Organization [facility] [employer] Address [address] [place] [address] Care Team Providers Care Linux Consultant Name Role Phone Blanca Knapp Primary Care Provider [phone] Shavon Henry PA-C Unavailable Source Comments [facility],non-owned Affiliates and Associated Physician Practices is amultiple site organization consisting of ambulatory clinics and hospital sitesin [place], [place], [place] and [place]. This disclosure is being madepursuant to the Care Everywhere program and may not contain all information available regarding this patient. Last updated 17.[facility] [employer] Allergies No known active allergies Medications * Be aware that medications may not be up to date on this document. Alwaysverify current medications with the patient. buPROPion XL 24hr (WELLBUTRIN-XL) 300 MG tablet Take 1 (one) tablet by mouth once daily 0 09/01/2018 Active spironolactone (ALDACTONE) 100 MG tablet TAKE 1 TABLET BY MOUTH EVERY DAY FOR ACNE 03/18/2021 Active levothyroxine (SYNTHROID) 50 MCG tablet Take 1 (one) tablet by mouth once daily 06/05/2021 Active sertraline (ZOLOFT) 100 MG tablet Take 1 (one) tablet by mouth once daily 06/05/2021 Active vitamin D, ergocalciferol, (DRISDOL) 1.25 mg (50,000 UT) capsule TAKE 1 CAPSULE BY MOUTH ONE TIME PER WEEK 05/23/2021 Active Active Problems Problem Noted Date Diagnosed Date Pulmonary stenosis 11/17/2009 Resolved Problems Problem Noted Date Diagnosed Date Resolved Date BMI (body mass index), pedia tric 95-99% for age, obese child structured weight management/multidisciplinary intervention category 01/03/2012 01/25/2013 Immunizations Immunization Administration Dates Next Due INFLUENZA VACCINE, TRIV. (AF LURIA, FLUZONE TRIVALENT; 6MO+) (IIV3) 03/17/2010 DPT 11/18/1996, 6,1995,10/14 DTaP VACCINE IM (6wk-6yrs) 08/21/2000 HEP A PEDS 2 DOSE 11/17/2009,08/25/2008 HEP B VACCINE, PED/ADOL 05/20/1996,1995, HIB BOOSTER 11/18/1996, 6,1995,10/14 Human Papilloma Virus Vaccine 08/25/2008, 009,02/18/2008 INFLUENZA VACCINE 01/07/2009, 8,01/12/2007,02/03,01/03/2005,01/18/2003,01/18/2002 ,01/27/2001,02/15/2000,01/25/1999,02/06,01/21/1998,03/21/1997, 7 Influenza Nasal 01/03/2012,12/24/2010 ORACIO VACCINE QUAD LAIV4 PF NASAL 01/25/2013 MENINGOCOCCAL ACWY (MCV4P) VAC IM 01/25/2013, MMR 08/21/2000,08/16/1996 POLIO IPV 08/21/2000 POLIO OPV 02/19/1996,1995,1995 PPD 08/21/2000,08/16/1996 TDAP (7yrs+) 01/12/2007 VARICELLA 11/17/2009,11/18/1996 Family History Medical History Relation Name Comments Arrhythmia Neg Hx CVA<55(male) Neg Hx CVA<65(female) Neg Hx Cardiomyopathy Neg Hx Congenital Heart defect Neg Hx Heart Surgery Neg Hx Long QT Syndrome Neg Hx TX<55(male) Neg Hx TX<65(female) Neg Hx Marfan Syndrome Neg Hx Pacemaker Neg Hx Sudd. <30 Neg Hx Social History Tobacco Use Types Packs/Day Years Used Date Smoking Tobacco: Never Smokeless Tobacco: Never Tobacco Cessation:Counseling Given: Not Answered Alcohol Use Standard Drinks/Week Comments Yes 1 (1 standard drink = 0.6 oz pur e alcohol) social Comments Unknown Sex and Gender Information Value Date Recorded Sex Assigned at Female 06/11/2021 1:14 AM BRAND REPRESENTATIVE Legal Sex Female 5:37 AM BRAND REPRESENTATIVE Gender Identity Female 06/11/2021 1:14 AM BRAND REPRESENTATIVE Sexual Orientation Straight 06/11/2021 1: 14 AM BRAND REPRESENTATIVE Last Filed Vital Signs Vital Sign Reading Time Taken Comments Blood Pressure 110/80 05/18/2024 9:54 AM BRAND REPRESENTATIVE Pulse 88 05/18/2024 9:54 AM BRAND REPRESENTATIVE Temperature 35.6 C (96 F) 07/11/2021 7:03 AM CDT Respiratory Rate 20 05/18/2024 9:54 AM BRAND REPRESENTATIVE Oxygen Saturation 96% 05/18/2024 9:54 AM BRAND REPRESENTATIVE Inhaled Oxygen Concentration - - Weight 134.9 kg (297 lb 6.4 oz) 05/18/2024 9:54 AM BRAND REPRESENTATIVE Height 172.7 cm (5' 8) 05/18/2024 9:54 AM BRAND REPRESENTATIVE Body Mass Index 45.22 05/18/2024 9:54 AM BRAND REPRESENTATIVE Plan of Treatment Upcoming Encounters Date Type Department Care Team (Late st Contact Info) Description 05/17/2025 9:00 AM BRAND REPRESENTATIVE Appointment [facility] [address] [place] [address] Samson Rodríguez MD [address] [place] [address] Health Maintenance Due Date Last Done Comments HIV SCREENING 08/12/2010 HEPATITIS C SCREENING 08/08/2013 PAP SMEAR 08/12/2016 DTAP/TDAP/TD VACCINES (7 - Td or Tdap) 01/12/2017 01/12/2007, 08/21/2000, 11/18/1996, Additional history exists DEPRESSION SCREENING 04/07/2024 COVID-19 VACCINE ( season) 2024 02/09/2021, 05/02/2020, 04/13/2020 INFLUENZA VACCINE (#1) 2024 , 11/30/2021, 12/27/2020, Additional history exists ZOSTER VACCINE (1 of 2) 08/12/2045 HEPATITIS B VACCINE Completed 05/20/1996, 1995, 1995 HIB VACCINE Completed 11/18/1996, 02/05, 1995, Additional history exists HPV VACCINE Completed 08/25/2008, 04/07, 02/18/2008 MENINGOCOCCAL GROUPS A/C/Y/W VACCINE Completed 01/25/2013, 11/17/2009 MENINGOCOCCAL (Group B) VACCINE SHARED DECISION-MAKING Aged Out No longer eligible based on patient's age to complete this topic PNEUMOCOCCAL VACCINE Aged Out No long er eligible based on patient's age to complete this topic Insurance [employer] SELF PAY NO INSURANCE Member Subscriber Plan / Payer (Ef fective for All Dates) Name:Ginna Nicholson Member ID:Not on file Relation to Subscriber:Not on file Name:GINNA NICHOLSON Subscriber ID:Not on file (Home) Address: [address] [place] [address] Payer ID:Not on file Group ID:Not on file Type:Self Pay Address: [place], [place] Care Teams Linux Consultant Relationship Specialty Start Date End Date Blanca Knapp [phone] [address], [facility] [address] [place] [address] PCP - General 05/18/24 Shavon Henry PA-C [address] [place] [address] Physician [facility] 05/18/24
--- NOTE | 2025-02-02 11:15 | NEURO_ITS ---
Impression: # Complains of pain in pinky fingers. ? 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 ? # Mild left ulnar neuropathy across the elbow. ? # Carpal Tunnel Syndrome, right more than left. ? # Abnormal Needle/EMG exam. Nerve Conduction Studies ?Stim Site NR Peak (ms) P-T Amp (?V) Site1 Site2 Delta-P (ms) Dist (cm) Michael (m/s) Left Median Anti Sensory (2-3nd Digit) Wrist ? 3.3 76.0 Wrist 2-3nd Digit 3.3 14.0 42 Wrist ? 3.5 58.1 Wrist 2-3nd Digit 3.3 14.0 42 Right Median Anti Sensory (2-3nd Digit) Wrist ? 4.2 27.0 Wrist 2-3nd Digit 4.2 14.0 33 Wrist ? 4.3 26.4 Wrist 2-3nd Digit 4.2 14.0 33 Left Radial Anti Sensory (Base 1st Digit) Wrist ? 2.0 24.6 Wrist Base 1st Digit 2.0 0.0 Right Radial Anti Sensory (Base 1st Digit) Wrist ? 2.3 17.9 Wrist Base 1st Digit 2.3 0.0 Left Ulnar Anti Sensory (5th Digit) Wrist ? 2.3 62.5 Wrist 5th Digit 2.3 14.0 61 Right Ulnar Anti Sensory (5th Digit) Wrist ? 2.8 25.8 Wrist 5th Digit 2.8 14.0 50 ?Stim Site NR Onset (ms) O-P Amp (mV) Site1 Site2 Delta-0 (ms) Dist (cm) Michael (m/s) Left Median Motor (Abd Poll Brev) Wrist ? 4.2 2.0 Elbow Wrist 5.6 29.0 52 Elbow ? 9.8 1.4 Right Median Motor (Abd Poll Brev) Wrist ? 5.1 2.0 Elbow Wrist 4.7 28.0 60 Elbow ? 9.8 4.6 Left Ulnar Motor (Abd Dig Minimi) Wrist ? 2.6 9.2 A Elbow Wrist 6.3 32.0 51 A Elbow ? 8.9 7.7 B Elbow Wrist 4.7 25.0 53 B Elbow ? 7.3 8.1 Right Ulnar Motor (Abd Dig Minimi) Wrist ? 2.2 3.9 A Elbow Wrist 13.7 30.0 22 A Elbow ? 15.9 1.5 B Elbow Wrist 5.2 23.0 44 B Elbow ? 7.4 1.0 F Wave Studies ?NR F-Lat (ms) L-R F-Lat (ms) Left Median (Mrkrs) (Abd Poll Brev) ? 30.26 2.02 Right Median (Mrkrs) (Abd Poll Brev) ? 28.24 2.02 Left Ulnar (Mrkrs) (Abd Dig Min) ? 31.29 2.62 Right Ulnar (Mrkrs) (Abd Dig Min) ? 28.67 2.62 Electromyography ?Side Muscle Nerve Root Ins Act Fibs Amp Dur Recrt Comment Right 1stDorInt Ulnar C8-T1 Nml Nml Nml >12ms +3 Right Ext Indicis Radial (Post Int) C7-8 Nml Nml Nml Nml Nml Right Ext Digitorum Radial (Post Int) C7-8 Nml Nml Nml Nml Nml Right BrachioRad Radial C5-6 Nml Nml Nml Nml Nml Right PronatorTeres Median C6-7 Nml Nml Nml Nml Nml Right Abd Poll Brev Median C8-T1 Nml Nml Nml >12ms +1 Right ABD Dig Min Ulnar C8-T1 Nml Nml Nml >12ms +2 Right FlexPolLong Median (Ant Int) C7-8 Nml Nml Nml Nml Nml Right Abd Poll Long Radial (Post Int) C7-8 Nml Nml Nml Nml Nml Left 1stDorInt Ulnar C8-T1 Nml Nml Nml >12ms +1 Left Ext Indicis Radial (Post Int) C7-8 Nml Nml Nml Nml Nml Left Ext Digitorum Radial (Post Int) C7-8 Nml Nml Nml Nml Nml Left BrachioRad Radial C5-6 Nml Nml Nml Nml Nml Left PronatorTeres Median C6-7 Nml Nml Nml Nml Nml Left Abd Poll Brev Median C8-T1 Nml Nml Nml >12ms +1 Left ABD Dig Min Ulnar C8-T1 Nml Nml Nml >12ms +1 Left FlexPolLong Median (Ant Int) C7-8 Nml Nml Nml Nml Nml Left Abd Poll Long Radial (Post Int) C7-8 Nml Nml Nml Nml Nml ?
== END 2025-02-02 09:50 | disposition home or self-care (01) ==
PROVIDERS: Visit Provider Physician Assistant Surgical
DX: G56.23 Lesion of ulnar nerve, bilateral upper limbs (principal); G56.03 Carpal tunnel syndrome, bilateral upper limbs
CPT/HCPCS: 95886; 95911